=== PATIENT | female | born 1970 | race Caucasian/White ===

== ENCOUNTER → 2020-08-30 | Outpatient (CLI) | payer BC, OTHER ==
[~2020-08-30] MED LIST: BUPR450T PO; DULO1CAP6 PO; ISIB1TAB PO; LISI10TA22 PO; METF10004 PO; METO1TAB7 PO; MONT10TA10 PO; SIMV10TA21 PO; SPIR-10 PO
== END ==
LOC: M LABSMTC 13:53
PROVIDERS: ATTEND Anesthesiology
DX: Z01.812 Encounter for preprocedural laboratory examination (principal); Z20.822 Contact with and (suspected) exposure to COVID-19

== ENCOUNTER 2020-09-04 07:00 | Day surgery (SDC) | payer BC, OTHER ==
[2020-09-04] VITALS (7 sets, daily range): BP systolic 127–146; BP diastolic 77–97
[~2020-09-04] VITALS: Ht 157.5 cm; Wt 64.0 kg
[~2020-09-04 07:00] MED LIST changes: +CLINDAMYCIN 600 MG in IV 1 EA IV ONE; +HEPARIN SOD (PORCINE) 5000UNITS/ML 1ML VIAL/SYRINGE SQ ONE; +LR 1,000 ML IV ONE
[2020-09-04] MEDS ORDERED: ONDANSETRON 4MG/2ML VIAL As Ordered ONE (08:17)
[2020-09-04] MEDS ORDERED: ROCURONIUM BROMIDE 50 MG/5 ML VIAL As Ordered ONE ×2 (08:17→10:31)
[2020-09-04] MEDS ORDERED: fentaNYL 250 MCG/5 ML INJECTION (J3010) As Ordered ONE (08:17)
[2020-09-04] MEDS ORDERED: LIDOCAINE 2% 100MG/5ML SDV (FOR ANES.) As Ordered ONE (08:17)
[2020-09-04] MEDS ORDERED: MIDAZOLAM INJ 2MG/2ML VIAL (J2250 PER 1MG) As Ordered ONE (08:17)
[2020-09-04] MEDS ORDERED: dexameTHASONE 4 MG/ML 1ML VIAL (J1100 PER 1MG) As Ordered ONE (08:17)
[2020-09-04] MEDS ORDERED: propofoL 200 MG/20 ML VIAL As Ordered ONE (08:17)
[2020-09-04] MEDS ORDERED: BACITRACIN PWD 50,000 UNITS VIAL As Ordered ONE ×2 (08:56→10:01)
[2020-09-04] MEDS ORDERED: BUPIVACAINE LIPOSOME/PF 1.3% 20ML VIAL (13.3MG/ML)(EXPAREL)(C9290 PER1MG) As Ordered ONE (08:56)
[2020-09-04] MEDS ORDERED: SEVOFLURANE INHAL SOLN 250 ML BTL As Ordered ONE (08:59)
[2020-09-04] MEDS ORDERED: METOCLOPRAMIDE INJ 10MG/2ML VIAL (J2765 PER 1) As Ordered ONE (09:51)
[2020-09-04] MEDS ORDERED: LACRILUBE (AKWA TEARS) OPHTH OINT 3.5 GM As Ordered ONE (09:51)
[2020-09-04] MEDS ORDERED: PHENYLephrine 500MCG 5ML (100MCG/ML) SYRINGE As Ordered ONE (10:08)
[2020-09-04] MEDS ORDERED: ePHEDrine SULFATE 25 MG/5 ML(5MG/ML) SYRINGE As Ordered ONE (10:08)
[2020-09-04] MEDS ORDERED: SUGAMMADEX SODIUM 500 MG/5 ML VIAL (BRIDION) As Ordered ONE (10:36)
[2020-09-04] MEDS ORDERED: ACETAMINOPHEN 1000MG 100ML IV BTL (OFIRMEV) (J0131 PER 10MG) As Ordered ONE (10:36)
[2020-09-04] MEDS ORDERED: HYDROmorphone HCL 2 MG/ML 1ML VIAL (J1170) As Ordered ONE (10:37)
--- NOTE | 2020-09-04 12:47 | POST-OPPD ---
Postoperative Procedure Note Date Of Procedure: Sep 04, 2020 PREOPERATIVE DIAGNOSIS: Panniculitis POSTOPERATIVE DIAGNOSIS: same FINDINGS: pannus PROCEDURE: Extended panniculectomy Monicaniecy Bartholomew approach SURGEON: Dr Pickens ANESTHESIA: General SPECIMENS: Pannus 2655 gm ESTIMATED BLOOD LOSS: 75 cc REPLACED: none DRAINS: 10 mm JULIO CESAR x 2 COMPLICATIONS: none POSTOPERATIVE CONDITION: stable CHELSEY PICKENS DO Sep 04, 2020 12:47
[2020-09-04] MEDS ORDERED: ONDANSETRON 4MG/2ML VIAL IV PRN ×2 (12:50→13:15)
[2020-09-04] MEDS ORDERED: ACETAMINOPHEN TAB 650MG DOSE (2X325MG) PO PRN (12:50)
[2020-09-04] MEDS ORDERED: LR 1,000 ML IV SCH (13:15)
[2020-09-04] MEDS ORDERED: METOCLOPRAMIDE INJ 10MG/2ML VIAL (J2765 PER 1) IV PRN (13:15)
[2020-09-04] MEDS ORDERED: fentaNYL 100 MCG/2 ML INJECTION (J3010) IV PRN (13:15)
[2020-09-04] MEDS ORDERED: PERCOCET 5MG/325MG TAB PO PRN ×2 (13:15→14:55)
[2020-09-04] MEDS: LR 1,000 ML IV SCH ×2 (14:38→20:26)
--- NOTE | 2020-09-04 15:00 | HPEPDOC ---
General Date of Admission 09/04/20 Date of Service: Sep 04, 2020 Chief Complaint The patient is a 50-year-old female admitted with a reason for visit of Panniculitis, Separation Of Muscle. Source: Patient, RN/MD History of Present Illness 50 year old with PMH of HTN, Metabolic syndrome, PCOS, HLD, IBS, Fibromyalgia, gastroparesis idiopathic, was admitted for elective panniculectomy with Dr Pickens. Patient had an uneventful surgery with removal of 6lbs of material. Patient was seen in the PACU after surgery still slightly somnolent but able to answer all questions. Complains of abdominal pain at the surgical site about 5/10 sharp aching in nature Home Medications Scheduled Bupropion HCl (Bupropion Xl) 450 Mg Tab.er.24h, 450 MG PO DAILY, (Reported) Desogestrel-Ethinyl Estradiol (Isibloom 28 Day Tablet) 1 Each Tablet, 1 TAB PO DAILY, (Reported) Duloxetine Hcl (Duloxetine HCl) 60 Mg Capsule.dr, 60 MG PO DAILY, (Reported) Lisinopril (Lisinopril) 10 Mg Tablet, 10 MG PO DAILY, (Reported) Metformin HCl (Metformin HCl) 1,000 Mg Tablet, 1,000 MG PO BID, (Reported) Metoprolol Succinate (Metoprolol Succinate) 50 Mg Tab.er.24h, 50 MG PO DAILY, (Reported) Simvastatin (Simvastatin) 10 Mg Tablet, 10 MG PO QHS, (Reported) Spironolactone (Spironolactone) 25 Mg Tablet, 25 MG PO DAILY, (Reported) Allergies Coded Allergies: cephalexin (Verified Allergy, Mild, hives, 09/04/20) Past Medical History Medical History HTN, Metabolic syndrome, PCOS, HLD, IBS, Fibromyalgia, gastroparesis idiopathic, Surgical History cholecystectomy, appendectomy, carpal tunnel release at right wrist, reimplantation of urethra at age of 1 years. Family History Significant Family History: Heart disease (father at age 84 from heart disease) Social History * Smoker: Denies Alcohol: rarely Drugs: denies A-FIB/CHADSVASC A-FIB History Current/History of A-Fib/PAF?: No Review of Systems Constitutional: Denies: Chills, Fever, Night Sweats Eyes: Denies: Pain, Vision change ENT: Denies: Head Aches, Ear Pain, Dysphagia Skin: Denies: Rash, Lesions, Breakdown Pulmonary: Denies: Dyspnea, Cough Cardiovascular: Denies: Chest Pain, Palpitations, Orthopnea, Paroxysmal Noc. Dyspnea, Lt [place]ness Gastrointestinal: Denies: Nausea, Vomiting, Abdominal Pain, Diarrhea Physical Examination General Exam: Positive: Alert, Cooperative, No Acute Distress Eye Exam: Positive: PERRLA, Conjunctiva & lids normal, EOMI; Negative: Sclera icteric ENT Exam: Positive: Atraumatic, Mucous membr. moist/pink, Pharynx Normal Neck Exam: Positive: Supple; Negative: JVD, thyromegaly Chest Exam: Positive: Clear to auscultation, Normal air movement Heart Exam: Positive: Rate Normal, Regular Rhythm, Normal S1, Normal S2; Negative: Murmurs, Rubs Abdomen Exam: Positive: Normal bowel sounds, Tenderness (all over), Other (in surgical dressings, with 2 drains) Extremity Exam: Negative: Clubbing, Cyanosis, Edema Neuro Exam: Positive: Normal Speech Psych Exam: Positive: Memory Intact, Oriented x 3 Vital Signs Vital Signs Date Time Temp Pulse Resp B/P (MAP) Pulse Ox O2 Delivery O2 Flow Rate FiO2 09/04/20 14:13 82 16 135/82 (99) 95 Room Air 09/04/20 13:55 97.4 09/04/20 13:25 2 Assessment/Plan 50 year old with PMH of HTN, Metabolic syndrome, PCOS, HLD, IBS, Fibromyalgia, gastroparesis idiopathic, was admitted for elective panniculectomy with Dr Pickens. Patient had an uneventful surgery with removal of 6lbs of material. S/P Panniculectomy Diet, activity, as per dr pickens Pain meds ordered. will check CBC continue IVF, clindamycin. Metabolic syndrome/ PCOS on metformin, will hold during hospitalization. patient is not diabetic. Hypertension continue metoprolol hold lisinopril and spironolactone HLD statin cont Fibromyalgia duloxetine and bupropion cont Plan / VTE VTE Prophylaxis Ordered?: Yes MAGDALENE BOURNE MD Sep 04, 2020 14:59
[2020-09-04] MEDS: NORCO, ANEXSIA 5/325MG TABLET (HYDROcodone/ACETAMINOPHEN) PO PRN (17:10)
[2020-09-04] MEDS: CLINDAMYCIN 600 MG in IV 1 EA IV SCH (17:10)
[2020-09-04] MEDS: SIMVASTATIN 10 MG TAB PO SCH (20:21)
[2020-09-05] MEDS ORDERED: NORCO, ANEXSIA 5/325MG TABLET (HYDROcodone/ACETAMINOPHEN) As Ordered ONE (00:59)
[2020-09-05] MEDS ORDERED: CLINDAMYCIN 600 MG/50 ML PREMIX BAG As Ordered ONE (00:59)
[2020-09-05] MEDS: NORCO, ANEXSIA 5/325MG TABLET (HYDROcodone/ACETAMINOPHEN) PO PRN ×5 (01:00→21:26)
[2020-09-05 02:00] VITALS: BP 125/82
[2020-09-05] MEDS: CLINDAMYCIN 600 MG in IV 1 EA IV SCH ×3 (02:00→17:22)
[2020-09-05 06:00] VITALS: BP 124/81
[2020-09-05 06:55] LABS: HEMOGLOBIN 10.5 g/dl (12.0-15.5); MEAN CORPUSCULAR HEMOGLOBIN 30.2 pg (27.0-33.0); MEAN CORPUSCULAR HGB CONC 31.8 g/dl (32.0-36.5); MEAN CORPUSCULAR VOLUME 94.8 fl (80.0-96.0); PLATELET COUNT, AUTOMATED 293 10^3/uL (150-450); RED BLOOD COUNT 3.48 10^6/uL (4.00-5.40); WHITE BLOOD COUNT 11.6 10^3/uL (4.0-10.0)
[2020-09-05 07:21] LABS: BLOOD UREA NITROGEN 10 MG/DL (7-18); CARBON DIOXIDE LEVEL 25 MEQ/L (21-32); CHLORIDE LEVEL 110 MEQ/L (98-107); CREATININE FOR GFR 0.96 MG/DL (0.55-1.30); GLOMERULAR FILTRATION RATE > 60.0 (>51); GLUCOSE, FASTING 100 MG/DL (70-100); POTASSIUM SERUM 4.5 MEQ/L (3.5-5.1); SODIUM LEVEL 141 MEQ/L (136-145)
--- NOTE | 2020-09-05 13:21 | IPNPDOC ---
Subjective General Date Seen: Sep 05, 2020 Subject Chief Complaint/History The patient is a 50-year-old female admitted with a reason for visit of Panniculitis, Separation Of Muscle. Patient is status post extended panniculectomy sam's approach postop day 1. Pain controlled with by mouth medications. Patient ambulates, tolerating diet. Current Medications Current Medications Current Medications Medications (Trade) Dose Ordered Sig/Jessy Route PRN Reason Start Time Stop Time Status Last Admin Dose Admin Acetaminophen (Tylenol Tab) 650 mg Q6H PRN PO MILD PAIN (PS 1-4) 09/04/20 12:50 Acetaminophen/ Hydrocodone Bitart ([place], Anexsia 5/325) 1 tab Q4HP PRN PO MODERATE PAIN (PS 5-7) 09/05/20 11:25 Acetaminophen/ Hydrocodone Bitart ([place], Anexsia 5/325) 1 tab Q6HP PRN PO MODERATE PAIN (PS 5-7) 09/04/20 14:55 09/05/20 11:25 DC 09/05/20 07:56 Acetaminophen/ Hydrocodone Bitart ([place], Anexsia 5/325) 2 tab Q4HP PRN PO SEVERE PAIN (PS 8-10) 09/05/20 11:25 09/05/20 12:29 Clindamycin Phosphate 600 mg/ IV Miscellaneous Supplies 50 ml @ 100 mls/hr Q8H IV 09/04/20 18:00 09/05/20 10:17 Fentanyl Citrate (Sublimaze) 25 mcg Q5MP PRN IV PAIN LEVEL 5-10 09/04/20 13:15 09/04/20 14:15 DC Lactated Ringer's 1,000 ml @ 75 mls/hr [id number] IV 09/04/20 12:47 09/05/20 12:30 DC 09/04/20 20:26 Lactated Ringer's 1,000 ml @ 100 mls/hr Q10H IV 09/04/20 13:15 09/04/20 14:15 DC Metoclopramide HCl (REGLAN INJection) 10 mg Q6HP PRN IV NAUSEA OR VOMITING 09/04/20 13:15 09/04/20 14:15 DC Ondansetron HCl (ZOFRAN INJection) 4 mg Q4H PRN IV NAUSEA OR VOMITING 09/04/20 12:50 09/04/20 15:14 Ondansetron HCl (ZOFRAN INJection) 4 mg Q4HP PRN IV NAUSEA OR VOMITING 09/04/20 13:15 09/04/20 14:15 DC Oxycodone/ Acetaminophen (Percocet 5mg/ 325mg Tablet) 1 tab ASDIRECTED PRN PO PAIN LEVEL 1-4 09/04/20 13:15 09/04/20 14:15 DC Oxycodone/ Acetaminophen (Percocet 5mg/ 325mg Tablet) 1 tab Q6HP PRN PO SEVERE PAIN (PS 8-10) 09/04/20 14:55 Simvastatin (Zocor) 10 mg QHS PO 09/04/20 21:00 09/04/20 20:21 Allergies Coded Allergies: cephalexin (Verified Allergy, Mild, hives, 09/04/20) Objective Physical Examination Examination GENERAL APPEARANCE:Patient seen, laying in bed, awake, alert, and oriented. Comf ortable, in no acute distress. SKIN: Warm and moist. NECK: Supple, no thyromegaly. No obvious jugular venous distention. LUNGS: Clear to auscultation bilaterally. No wheezing appreciated. HEART: No chest wall abnormalities. Regular rate and rhythm with no murmurs appreciated. ABDOMEN: Abdomen is soft, non-tender, non-distended. Incisions intact. Umbilicus viable. JULIO CESAR drains with serosanguinous drainage. 40/30 cc/24hr each drain. EXTREMITIES: No edema identified. No calf tenderness. Vital Signs Vital Signs Date Time Temp Pulse Resp B/P (MAP) Pulse Ox O2 Delivery O2 Flow Rate FiO2 09/05/20 12:29 17 09/05/20 06:00 97.5 86 124/81 (95) 94 Room Air 09/04/20 13:25 2 I&Os I&O- Last 24 Hours up to 6 AM 09/05/20 05:59 Intake Total 1290 ml Output Total 980 ml Balance 310 ml Laboratory Data Labs 24H Laboratory Tests 2 09/05/20 06:39: Nucleated Red Blood Cells % (auto) 0.0, Anion Gap 6L, Glomerular Filtration Rate > 60.0, Calcium Level 8.0L CBC/BMP Laboratory Tests 09/05/20 06:39 Impression S/p panniculectomy POD 1. Doing well. Adjusting pain medications. Patient may go home after pain is controlled. Continue with JULIO CESAR monitoring, compressive binder. Dressings changed. She will be following in plastic surgery office 09/10/20 at 11:30 Plan / VTE VTE Prophylaxis Ordered?: Yes CHELSEY ANDRADE DO Sep 05, 2020 13:21
--- NOTE | 2020-09-05 14:13 | ROOPDOC ---
[facility] Report Of Operation Report of Operation Date Of Procedure: Sep 04, 2020 PREOPERATIVE DIAGNOSIS: Panniculitis POSTOPERATIVE DIAGNOSIS: same FINDINGS: pannus PROCEDURE: Extended panniculectomy Monica de Lis approach SURGEON: Dr Andrade ANESTHESIA: General SPECIMENS: Pannus 2655 gm ESTIMATED BLOOD LOSS: 75 cc REPLACED: none DRAINS: 10 mm JULIO CESAR x 2 COMPLICATIONS: none POSTOPERATIVE CONDITION: stable Procedure: This is a 50 year-old female status post significant weight loss. Patient has excessive pannus above and mostly below the umbilicus which complicated by midline contracted old scar. Patient is scheduled for extended panniculectomy with possible rectus muscle plication Monica de Lis approach. Risks benefits and alternatives discussed with the patient in details. Informed consent confirmed and preoperative holding area. Patient was marked in upright position. She was brought into the operating room, placed in supine position, preoperative antibiotics given, sequential stockings placed in the lower calves, and then general anesthesia is induced. Joseph catheter introduced in the bladder without any difficulties with yellow clear urine present. She was prepped and draped in the usual sterile fashion.Lower abdominal incision made 7 cm above the labial crease along patient's natural suprapubic crease. Incision carried out with 10 blade. Careful sharp dissection with electrocautery and PEEK cautery was done until the fascia of rectus muscle is identified. Following the musculoaponeurotic fascial plane superiorly, the abdominal skin and subcutaneous tissue are undermined. Vessels were identified throughout and either cauterized or suture ligated for hemostasis control. Infraumbilical flap was divided in the middle to aid the dissection. We continued our dissection until umbilicus was encountered. Rhomboid incision made around the umbilicus and dissection continued until xiphoid process superiorly and costal margins laterally. Rectus muscle is examined in its in good condition, no diathesis appreciated. Wound is irrigated with bacitracin and normal saline irrigation. Exparel block given into rectus muscle total 16 mL. Patient placed on placed in the reflex position and excess tissue which consists off abdominal skin and subcutaneous tissue was measured and resected using electrocautery. Patient had significant skin excess in midportion of abdomen therefore [id number] approach was taken to pannus resection. Total weight of the pannus 2655 g. Careful hemostasis was assured. Tissell topical hemostasis agent used around umbilical stump and xiphoid area.The flap was realigned and tacked with clamps. We started closure of the midline incision with deep sutures of 0 Vicryl. Subcutaneous layer closure with 3-0 Monocryl sutures and Inosorb tiana, than 3-0 Monocryl V lock suture used for subdermal closure. The mons pubis was realigned. We continued closing the lower abdominal incision with 0 Vicryl sutures for deep layer, followed by 3-0 Monocryl sutures for subcutaneous layer and Inosorb tiana, than 3-0 Monocryl V lock suture used for subdermal closure. Two10 mm Beau-Frost drains were placed through lower abdominal incision and secured in place with 3-0 Monocryl sutures. New opening was created for the umbilical stump using electrocautery. The umbilicus was brought into view and sutured in place with interrupted 3-Monocryl, 4-0 Monocryl sutures and 5-0 plain gut sutures in the interrupted fashion. Remaining Exparel was given into the lower abdominal incision and the drain area. Prinio dressing applied to lower abdominal incision, Xeroform to umbilicus, and bulky dressing throughout. Abdominal binder applied. Patient extubated in the operating room without any difficulties and transferred to recovery room in stable condition. CHELSEY ANDRADE DO Sep 05, 2020 14:13
[2020-09-05 14:38] VITALS: BP 121/69
[2020-09-05] MEDS ORDERED: HYDR-3715 PO (20:11)
--- NOTE | 2020-09-05 20:25 | IPNPDOC ---
Subjective Date Seen The patient was seen on 09/05/20. Subjective Chief Complaint/HPI abdominal pain not well controlled yet. pain meds increased. Objective Physical Examination General Exam: Positive: Alert, Cooperative, No Acute Distress Eye Exam: Positive: PERRLA, Conjunctiva & lids normal, EOMI; Negative: Sclera icteric ENT Exam: Positive: Atraumatic, Mucous membr. moist/pink, Pharynx Normal Neck Exam: Positive: Supple; Negative: JVD, thyromegaly Chest Exam: Positive: Clear to auscultation, Normal air movement Heart Exam: Positive: Rate Normal, Regular Rhythm, Normal S1, Normal S2; Negative: Murmurs, Rubs Abdomen Exam: Positive: Normal bowel sounds, Tenderness (all over), Other (in surgical dressings, with 2 drains) Extremity Exam: Negative: Clubbing, Cyanosis, Edema Neuro Exam: Positive: Normal Speech Psych Exam: Positive: Memory Intact, Oriented x 3 Assessment /Plan Assessment 50 year old with PMH of HTN, Metabolic syndrome, PCOS, HLD, IBS, Fibromyalgia, gastroparesis idiopathic, was admitted for elective panniculectomy with Dr Pickens. Patient had an uneventful surgery with removal of 6lbs of material. S/P Extended Panniculectomy Diet, activity, as per dr pickens Pain meds ordered. [place] and percocet. CBC noted hb at 10.0 On clindamycin. Metabolic syndrome/ PCOS on metformin, will hold during hospitalization. patient is not diabetic. Hypertension continue metoprolol hold lisinopril and spironolactone HLD statin cont Fibromyalgia duloxetine and bupropion cont Adjusting pain medications. Patient may go home after pain is controlled. Continue with JULIO CESAR monitoring, compressive binder. Dressings changed. She will be following in plastic surgery office 09/10/20 at 11:30 Plan/VTE VTE Prophylaxis Ordered?: Yes VS, I&O, 24H, Fishbone Vital Signs/I&O Vital Signs Date Time Temp Pulse Resp B/P (MAP) Pulse Ox O2 Delivery O2 Flow Rate FiO2 09/05/20 17:52 17 09/05/20 14:38 98.6 94 121/69 (86) 90 Room Air 09/04/20 13:25 2 I&O- Last 24 Hours up to 6 AM 09/05/20 07:00 Intake Total 2140 ml Output Total 980 ml Balance 1160 ml Laboratory Data 24H LABS Laboratory Tests 2 09/05/20 06:39: Nucleated Red Blood Cells % (auto) 0.0, Anion Gap 6L, Glomerular Filtration Rate > 60.0, Calcium Level 8.0L CBC/BMP Laboratory Tests 09/05/20 06:39 MAGDALENE BOURNE MD Sep 05, 2020 20:25
[2020-09-05] MEDS: SIMVASTATIN 10 MG TAB PO SCH (21:25)
[2020-09-05 22:00] VITALS: BP 133/88
[2020-09-06] MEDS: NORCO, ANEXSIA 5/325MG TABLET (HYDROcodone/ACETAMINOPHEN) PO PRN ×2 (03:47→12:45)
[2020-09-06 05:24] VITALS: BP 129/85
--- NOTE | 2020-09-06 09:33 | IPNPDOC ---
Subjective General Date Seen: Sep 06, 2020 Subject Chief Complaint/History The patient is a 50-year-old female admitted with a reason for visit of Panniculitis, Separation Of Muscle. S/p extended panniculectomy. POD 2. Doing well. Pain much improved. Ambulating, tolerating diet. Current Medications Current Medications Current Medications Medications (Trade) Dose Ordered Sig/Jessy Route PRN Reason Start Time Stop Time Status Last Admin Dose Admin Acetaminophen (Tylenol Tab) 650 mg Q6H PRN PO MILD PAIN (PS 1-4) 09/04/20 12:50 Acetaminophen/ Hydrocodone Bitart ([place], Anexsia 5/325) 1 tab Q4HP PRN PO MODERATE PAIN (PS 5-7) 09/05/20 11:25 09/06/20 03:47 Acetaminophen/ Hydrocodone Bitart ([place], Anexsia 5/325) 1 tab Q6HP PRN PO MODERATE PAIN (PS 5-7) 09/04/20 14:55 09/05/20 11:25 DC 09/05/20 07:56 Acetaminophen/ Hydrocodone Bitart ([place], Anexsia 5/325) 2 tab Q4HP PRN PO SEVERE PAIN (PS 8-10) 09/05/20 11:25 09/05/20 12:29 Clindamycin Phosphate 600 mg/ IV Miscellaneous Supplies 50 ml @ 100 mls/hr Q8H IV 09/04/20 18:00 09/05/20 20:26 DC 09/05/20 17:22 Fentanyl Citrate (Sublimaze) 25 mcg Q5MP PRN IV PAIN LEVEL 5-10 09/04/20 13:15 09/04/20 14:15 DC Lactated Ringer's 1,000 ml @ 75 mls/hr [id number] IV 09/04/20 12:47 09/05/20 12:30 DC 09/04/20 20:26 Lactated Ringer's 1,000 ml @ 100 mls/hr Q10H IV 09/04/20 13:15 09/04/20 14:15 DC Metoclopramide HCl (REGLAN INJection) 10 mg Q6HP PRN IV NAUSEA OR VOMITING 09/04/20 13:15 09/04/20 14:15 DC Ondansetron HCl (ZOFRAN INJection) 4 mg Q4H PRN IV NAUSEA OR VOMITING 09/04/20 12:50 09/04/20 15:14 Ondansetron HCl (ZOFRAN INJection) 4 mg Q4HP PRN IV NAUSEA OR VOMITING 09/04/20 13:15 09/04/20 14:15 DC Oxycodone/ Acetaminophen (Percocet 5mg/ 325mg Tablet) 1 tab ASDIRECTED PRN PO PAIN LEVEL 1-4 09/04/20 13:15 09/04/20 14:15 DC Oxycodone/ Acetaminophen (Percocet 5mg/ 325mg Tablet) 1 tab Q6HP PRN PO SEVERE PAIN (PS 8-10) 09/04/20 14:55 Simvastatin (Zocor) 10 mg QHS PO 09/04/20 21:00 09/05/20 21:25 Allergies Coded Allergies: cephalexin (Verified Allergy, Mild, hives, 09/04/20) Objective Physical Examination Examination GENERAL APPEARANCE:Patient seen, laying in bed, awake, alert, and oriented. Comfortable, in no acute distress. SKIN: Warm and moist. LUNGS: Clear to auscultation bilaterally. No wheezing appreciated. HEART: No chest wall abnormalities. Regular rate and rhythm with no murmurs appreciated. ABDOMEN: Abdomen is soft, non-tender, non-distended. Incision intact. Umbilicus viable. JULIO CESAR drains with serosanguinous drainage. 80/60 cc/24hr each drain. EXTREMITIES: No edema identified. No calf tenderness. Vital Signs Vital Signs Date Time Temp Pulse Resp B/P (MAP) Pulse Ox O2 Delivery O2 Flow Rate FiO2 09/06/20 05:24 97.0 92 18 129/85 (100) 95 Room Air 09/04/20 13:25 2 I&Os I&O- Last 24 Hours up to 6 AM 09/06/20 06:00 Intake Total 1110 ml Output Total 1630 ml Balance -520 ml Impression S/p panniculectomy Monica de Lis approach. Stable for discharge. Instructions given. Dressings changed. F/up plastic surgery office Thursday. Plan / VTE VTE Prophylaxis Ordered?: Yes CHELSEY ANDRADE DO Sep 06, 2020 09:33
--- NOTE | 2020-09-06 10:49 | IPNPDOC ---
Subjective Date Seen The patient was seen on 09/06/20. Subjective Chief Complaint/HPI Feeling well this morning. pain is controlled. Ok to dischrge home at this time Objective Physical Examination General Exam: Positive: Alert, Cooperative, No Acute Distress Eye Exam: Positive: PERRLA, Conjunctiva & lids normal, EOMI; Negative: Sclera icteric ENT Exam: Positive: Atraumatic, Mucous membr. moist/pink, Pharynx Normal Neck Exam: Positive: Supple; Negative: JVD, thyromegaly Chest Exam: Positive: Clear to auscultation, Normal air movement Heart Exam: Positive: Rate Normal, Regular Rhythm, Normal S1, Normal S2; Negative: Murmurs, Rubs Abdomen Exam: Positive: Normal bowel sounds, Tenderness (all over), Other (in surgical dressings, with 2 drains) Extremity Exam: Negative: Clubbing, Cyanosis, Edema Neuro Exam: Positive: Normal Speech Psych Exam: Positive: Memory Intact, Oriented x 3 Assessment /Plan Assessment 50 year old with PMH of HTN, Metabolic syndrome, PCOS, HLD, IBS, Fibromyalgia, gastroparesis idiopathic, was admitted for elective panniculectomy with Dr Pickens. Patient had an uneventful surgery with removal of 6lbs of material. S/P Extended Panniculectomy Diet, activity, as per dr pickens Pain meds ordered. [place] Continue with JULIO CESAR monitoring, compressive binder. She will be following in plastic surgery office 09/10/20 at 11:30 Metabolic syndrome/ PCOS on metformin, will hold during hospitalization. patient is not diabetic. Hypertension continue metoprolol, lisinopril and spironolactone HLD statin cont Fibromyalgia duloxetine and bupropion cont Plan/VTE VTE Prophylaxis Ordered?: Yes VS, I&O, 24H, Fishbone Vital Signs/I&O Vital Signs Date Time Temp Pulse Resp B/P (MAP) Pulse Ox O2 Delivery O2 Flow Rate FiO2 09/06/20 05:24 97.0 92 18 129/85 (100) 95 Room Air 09/04/20 13:25 2 I&O- Last 24 Hours up to 6 AM 09/06/20 06:00 Intake Total 1110 ml Output Total 1630 ml Balance -520 ml MAGDALENE BOURNE MD Sep 06, 2020 10:49
== END 2020-09-06 12:55 | disposition home or self-care (01) ==
LOC: M SDC 07:00 → M MS5PR 14:30 → M SDC 09-06 12:55
PROVIDERS: ATTEND Plastic Surgery Surgery of the Hand
DX: M54.07 Panniculitis affecting regions of neck and back, lumbosacral region (principal); L98.7 Excessive and redundant skin and subcutaneous tissue; M62.08 Separation of muscle (nontraumatic), other site; Z79.84 Long term (current) use of oral hypoglycemic drugs; Z79.899 Other long term (current) drug therapy; I10 Essential (primary) hypertension; E88.81 Metabolic syndrome and other insulin resistance; E78.49 Other hyperlipidemia; K58.8 Other irritable bowel syndrome; M79.7 Fibromyalgia; K31.84 Gastroparesis; Z88.1 Allergy status to other antibiotic agents; E28.2 Polycystic ovarian syndrome
CPT/HCPCS: 15830; 36415; 80048; 81025; 85027; 86850; 86900; 86901; 88302; 96361; 96365; 96366; 96375; A6024; C9290; J0131; J1100; J1170; J1644; J2250; J2370; J2405; J2765; J3010

== ENCOUNTER → 2021-07-18 | Outpatient (CLI) | payer BC, OTHER ==
[~2021-07-18] MED LIST changes: -CLINDAMYCIN 600 MG in IV 1 EA IV ONE; -HEPARIN SOD (PORCINE) 5000UNITS/ML 1ML VIAL/SYRINGE SQ ONE; +HYDR-3363 PO; +HYDR-3715 PO; -LR 1,000 ML IV ONE; -MONT10TA10 PO; +MONT10TA97 PO; +VENL37.598 PO
== END ==
LOC: M LABSMTC 11:17
PROVIDERS: ATTEND Anesthesiology
DX: Z01.818 Encounter for other preprocedural examination (principal); Z11.52 Encounter for screening for COVID-19